=== PATIENT | female | born 1950 | race Caucasian/White ===

== ENCOUNTER → 2020-10-02 | Outpatient (CLI) | payer MEDICARE ==
[~2020-10-02] MED LIST: ACET1TAB55 PO; CRES5TAB PO; DESI13CR2 EX; FERR325T3 PO; LIDOCAINE 1% MDV 20ML VIAL As Ordered ONE; LISI-898 PO; MECL-86 PO; PREDOPD OU; SIMB1SUS OU; SPIR-10 PO; TOPR25TA PO; VITA500C24 PO; VITMTA PO
[2020-10-02 11:15] VITALS: BP 115/58
--- NOTE | 2020-10-02 17:16 | REP ---
PROCEDURE NAME: PICC LINE INSERTION W/SITERITE CLINICAL INFORMATION: OSTEOMYELITIS. COMPARISON: None. PROCEDURE DESCRIPTION: The procedure was performed by AUGUSTIN Erickson, under the direct supervision of Dr. Fuchs. The risks and benefits of the procedure were explained to the patient and an informed consent was obtained both verbally and written. Directly prior to the start of the procedure a formal time-out was completed in the procedure room. The left basilic vein was localized using ultrasound guidance. The skin was prepped and draped in sterile fashion. Two ML of 1% lidocaine 10 mg/mL was used as a local anesthetic. Using ultrasound guidance the left basilic vein was cannulated, and a 0.018 guidewire was inserted and advanced to the level of SVC using fluoroscopic guidance. The needle was removed and a 5.5 [place] dilator and peel-away sheath was inserted over the guidewire. A 5.5 [place] dual lumen catheter was cut to a length of 40 cm. The dilator was removed and the catheter was inserted over the guidewire with the tip ending at the level of the SVC. The peel-away sheath was removed and the catheter was flushed with heparinized saline as per hospital protocol. The catheter was affixed to the skin and a sterile dressing was applied. The patient tolerated the procedure well and there were no immediate complications. CONCLUSION: PICC line insertion into the left basilic vein. 0.2 minutes of fluoroscopy time was utilized for this procedure. Some fluoroscopic images are performed with last image hold technology. These images require no additional radiation. <Electronically signed by Madina Chan > 10/02/20 1634 <Electronically signed by Kvng Fuchs > 10/02/20 1712
== END ==
LOC: M IRPRO 11:02
DX: M86.9 Osteomyelitis, unspecified (principal)
CPT/HCPCS: 76937; C1751; J1642; J1644